=== PATIENT | female | born 1955 | race Caucasian/White ===

== ENCOUNTER 2018-06-28 09:23 | Emergency (ER) | payer BC ==
[2018-06-28 10:22] VITALS: BP 113/84
--- NOTE | 2018-06-28 11:02 | ED ---
Upper Extremity Pain - HPI Summary HPI Summary: 63 yr old female with the complaint of left shoulder pain. Onset of pain yesterday. She was hiking and fell landing on her left arm when it was in full forward flexion. She complains of pain over the left anterior shoulder. Pain is worse with range of motion. No swelling, no bruising, no redness. - History of Current Complaint Chief Complaint: UCUpperExtremity Stated Complaint: SP FALL-LT SHOULDER/ARM INJURY Time Seen by Provider: 06/28/18 10:36 - Allergies/Home Medications Allergies/Adverse Reactions: Allergies Allergy/AdvReac Type Severity Reaction Status Date / Time No Known Allergies Allergy Verified 06/28/18 10:17 Home Medications: Home Medications Ibuprofen TAB* [Advil TAB*] 800 mg PO Q6H PRN 06/28/18 [History Confirmed ] Levothyroxine TAB* [Synthroid TAB*] 50 mcg PO DAILY 06/28/18 [History Confirmed 06/28/18] PMH/Surg Hx/FS Hx/Imm Hx Endocrine/Hematology History: Reports: Hx Diabetes - Type 2 controlled with diet and exercise, Hx Thyroid Disease - Surgical History Surgery Procedure, Year, and Place: L5 S1 Discectomy, 1995; Patial Hysterectomy (has ovaries and cervix); Cholecystectomy Infectious Disease History: No Infectious Disease History: Denies: Traveled Outside the [place] in Last 30 Days - Family History Known Family History: Positive: None - Social History Occupation: Employed Full-time Lives: With Family Alcohol Use: None Substance Use Type: Reports: None Smoking Status (MU): Never Smoked Tobacco Review of Systems Positive: Fever, Chills Positive: Sore Throat, Nasal Discharge Positive: Cough All Other Systems Reviewed And Are Negative: Yes Physical Exam Triage Information Reviewed: Yes Vital Signs On Initial Exam: Initial Vitals Temp Pulse Resp BP Pulse Ox 98.3 F 78 16 113/84 98 06/28/18 10:14 06/28/18 10:14 06/28/18 10:14 06/28/18 10:14 06/28/18 10:14 Vital Signs Reviewed: Yes Appearance: Positive: Well-Appearing, No Pain Distress Skin: Positive: Warm, Skin Color Reflects Adequate Perfusion Eyes: Positive: EOMI, ANJUM ENT: Positive: Normal ENT inspection Neck: Positive: Nontender Respiratory/Lung Sounds: Positive: Clear to Auscultation, Breath Sounds Present Cardiovascular: Positive: RRR. Negative: Murmur Abdomen Description: Negative: Distended Musculoskeletal: Positive: Other - patient is tender over the left anterior shoulder, and has limited active ROM in abduction and forward flexion left shoulder. Passively she has to 90 degrees forward flexion. Neurological: Positive: Sensory/Motor Intact, Alert, Oriented to Person Place, Time, CN Intact II-III, Normal Gait, Speech Normal Psychiatric: Positive: Normal Diagnostics - Vital Signs Vital Signs Temp Pulse Resp BP Pulse Ox 06/28/18 10:14 98.3 F 78 16 113/84 98 - Laboratory Lab Statement: Any lab studies that have been ordered have been reviewed, and results considered in the medical decision making process. Course/Dx - Course Course Of Treatment: 63 yr old with fx non displaced greater tuberosity of humerus left shoulder and rotator cuff tendonitis, injury. Fu with ortho. Sling given. - Diagnoses Provider Diagnoses: Rotator cuff injury, Nondisplaced fracture, Humeral head fracture Discharge - Sign-Out/Discharge Documenting (check all that apply): Patient Departure All imaging exams completed and their final reports reviewed: Yes - Discharge Plan Condition: Good Disposition: HOME Patient Education Materials: Rotator Cuff Injury (ED), Proximal Humerus Fracture (ED) Referrals: Rylan Zuluaga MD [Medical Doctor] - 1 Day No Primary Care Phys,NOPCP [Primary Care Provider] - - Billing Disposition and Condition Condition: GOOD Disposition: Home
== END 2018-06-28 12:12 | disposition home or self-care (01) ==
LOC: UCCORT 09:23
DX: S42.295A Other nondisplaced fracture of upper end of left humerus, initial encounter for closed fracture (principal); S42.255A Nondisplaced fracture of greater tuberosity of left humerus, initial encounter for closed fracture; S46.002A Unspecified injury of muscle(s) and tendon(s) of the rotator cuff of left shoulder, initial encounter; M75.82 Other shoulder lesions, left shoulder; J02.9 Acute pharyngitis, unspecified; E07.9 Disorder of thyroid, unspecified; E11.9 Type 2 diabetes mellitus without complications; R09.89 Other specified symptoms and signs involving the circulatory and respiratory systems; Z79.899 Other long term (current) drug therapy; W18.39XA Other fall on same level, initial encounter; Y93.01 Activity, walking, marching and hiking; Y92.9 Unspecified place or not applicable
CPT/HCPCS: 99202; G0463